=== PATIENT | female | born 1950 | race Caucasian/White ===

== ENCOUNTER → 2017-06-27 | Outpatient (CLI) | payer MEDICARE ==
[~2017-06-27] MED LIST: HALCION0.25 MG PO; KLONOPIN 0.5MG0.5 MG NG; LISINOPRIL/HCTZ1 TA3 PO; MORPHINE SULFAT20 M1 PO; NATURE'S BLE1000 MCG PO; NORCO 325 MG-101 TAB PO; NORCO 325 MG-51 TAB PO; NORCO1 TAB PO; PANTOPRAZOLE SO40 MG PO; SYNTHROID 0.00.05 MG PO; ZANAFLEX4 M1 PO
--- NOTE | 2017-06-27 13:09 | RADIOLOGY REPORT PS360 ---
WRIST-3 VIEWS-LT HISTORY: Follow-up fracture HEALING OF LEFT WRIST FX ORDERING PHYSICIAN: ANTONINA HAIRSTON MD PATIENT AGE: 66 years COMPARISON: 05/16/2017 FINDINGS: Healing fracture involving the distal radius. Fracture line is less apparent. There remains good alignment of the bony fragments. IMPRESSION: Healing distal radial fracture with good alignment
== END ==
LOC: RAD 08:50
DX: S52.532D Colles' fracture of left radius, subsequent encounter for closed fracture with routine healing (principal)